=== PATIENT | female | born 1945 | race Two or more races ===

== ENCOUNTER 2018-08-13 14:59 | Emergency (ER) | payer OTHER ==
[~2018-08-13] VITALS: Ht 160 cm; Wt 61.2 kg
[2018-08-13] MEDS ORDERED: COZAAR50 MG (15:54)
[2018-08-13] MEDS ORDERED: ZOCOR40 MG (15:54)
[2018-08-13] MEDS ORDERED: ADULT ASPIRIN81 MG (15:55)
[2018-08-13] MEDS ORDERED: LEVO-T50 MCG (15:55)
[2018-08-13] MEDS ORDERED: QUESTRAN PACKET4 GM (15:55)
== END 2018-08-13 18:12 | disposition home or self-care (01) ==
LOC: ER 14:59
DX: S92.412A Displaced fracture of proximal phalanx of left great toe, initial encounter for closed fracture (principal); W22.8XXA Striking against or struck by other objects, initial encounter; Y93.89 Activity, other specified; Y92.89 Other specified places as the place of occurrence of the external cause; Y99.8 Other external cause status